=== PATIENT | female | born 1995 | race Caucasian/White ===

== ENCOUNTER 2020-10-19 13:27 | Emergency (ER) | payer OTHER, SELFPAY ==
[2020-10-19 13:38] VITALS: BP 120/74; PULSE 96; RESP 16; TEMP 37.5; O2SAT 99
--- NOTE | 2020-10-19 13:45 | ED.GENADULT ---
HPI - General Adult General Chief complaint: Unspecified Stated complaint: lightheaded, shaky and headaches Time Seen by Provider: 10/19/20 13:45 Source: patient and RN notes reviewed History of Present Illness HPI narrative: Patient is a 25-year-old female to urgent care with complaints of intermittent headaches, lightheadedness and dizziness. Patient states that it has been going on for approximately 2 weeks or more and she does have a PCP visit in 1 month but they were unable to see her any sooner. Patient states that the symptoms seem to improve after she eats a meal. Patient has not taken anything [id number] for her symptoms and denies of any upper respiratory symptoms. Patient states there is a history of diabetes in her family and she was concerned about being diabetic. Patient denies of any nausea, vomiting or abdominal pain associated with her symptoms. Denies of any loss of consciousness. Patient is currently denying of any lightheadedness or dizziness. Patient states that she is also taken 6 test and they have all been negative. Patient's last menstrual cycle was approximately 2 weeks ago. No current complaints. No other acute complaints. No acute distress noted. Patient aware of the plan of care. Some parts of this dictation were generated by voice recognition software and may contain typographical and/or grammatical inaccuracies. Related Data Home Medications Medication Instructions Recorded Confirmed norethindrone-e.estradiol-iron tablet 10/19/20 [ (28)] sertraline mg 10/19/20 Allergies Allergy/AdvReac Type Severity Reaction Status Date / Time No Known Allergies Allergy Verified 10/19/20 13:34 Review of Systems Review of Systems: Narrative: CONSTITUTIONAL: Denies fever, chills, or sweats. EYES: Denies visual changes, redness, or discharge. ENT: Denies rhinorrhea, congestion, sore throat, or otalgia. CARDIOVASCULAR: Denies chest pain, palpitations, or edema. RESPIRATORY: Denies cough or dyspnea. GASTROINTESTINAL: Denies abdominal pain, nausea, vomiting, or diarrhea. GENITOURINARY: Denies dysuria or hematuria. SKIN: Denies rash or itching. MUSCULOSKELETAL: Denies back pain, joint pain, or myalgia. NEUROLOGIC: Denies headache, numbness, or weakness. All other systems reviewed are negative, except as documented in HPI. PMFSH Social History Social History Smoking status: Never smoker Second hand tobacco smoke exposure: No Alcohol intake: current Comments At the time of my signature, I reviewed and agree with the nursing past medical, surgical, social, and family history. There is no relevant family history pertinent to the patient complaint. Exam Narrative: Exam Narrative: GENERAL: This is a well-nourished, well-developed patient, in no apparent distress. HEAD: normocephalic, atraumatic. EYES: PERRL. Sclera clear/white. Vision is grossly intact. EARS: External ears normal, auditory canals clear and without drainage, TMs normal without perforation. Hearing grossly intact. NOSE: External nose normal with no obvious nasal discharge, nares without redness, no rhinorrhea. THROAT: Mucous membranes moist, posterior pharynx clear. NECK: Neck supple, non-tender without lymphadenopathy CARDIOVASCULAR: Regular rate and rhythm without murmurs, gallops, or rubs. RESPIRATORY: Clear to auscultation. Breath sounds equal bilaterally. No wheezes, rales, or rhonchi. GASTROINTESTINAL: Abdomen soft, non-tender, nondistended. SKIN: warm, intact with no suspicious lesions or rash, good texture and turgor. NEURO: awake, alert, and oriented to person, place and time. There were no obvious focal neurologic abnormalities. EXTREMITIES: No clubbing, cyanosis, or edema. Course Vital Signs Vital signs: Vital Signs Temperature 99.5 F 10/19/20 13:38 Pulse Rate 96 10/19/20 13:38 Respiratory Rate 16 10/19/20 13:38 Blood Pressure 120/74 10/19/20 13:38 Pulse Oximetry 99
[2020-10-19 13:58] LABS: Glucose Point of Care 108 (65-105)
== END 2020-10-19 14:03 | disposition home or self-care (01) ==
PROVIDERS: Emergency Provider Nurse Practitioner Family
DX: R42 Dizziness and giddiness (principal); Z00.00 Encounter for general adult medical examination without abnormal findings
CPT/HCPCS: 82948; 99202; G0463

== ENCOUNTER 2021-04-13 17:48 | Emergency (ER) | payer OTHER, SELFPAY ==
[2021-04-13 17:59] VITALS: BP 107/77; PULSE 86; RESP 16; TEMP 36.8; O2SAT 100
--- NOTE | 2021-04-13 18:30 | ED.URI ---
HPI - URI/Sore Throat General Chief Complaint: Upper Respiratory Infection Stated Complaint: congestion and cough Time Seen by Provider: 04/13/21 18:30 Source: patient, RN notes reviewed and old records reviewed Mode of arrival: ambulatory Limitations: no limitations History of Present Illness HPI Narrative: 25-year-old female who presents to [facility] with complaints of cough for over a month. Patient reports that she was seen at other urgent care about a month ago and was told she had sinus infection with those symptoms resolving but continues to have persistent cough. Patient denies any fevers, chills or sweats, denies any sore throat,ear pain, sinus pressure or drainage. Patient has been taking Mucinex and using cough drops with no resolution. Patient has had COVID vaccinations. MD elicited complaint: cough Related Data Home Medications Medication Instructions Recorded Confirmed norethindrone-e.estradiol-iron 1 tablet PO DAILY 10/19/20 04/13/21 [ ()] sertraline 50 mg PO DAILY 10/19/20 04/13/21 Allergies Allergy/AdvReac Type Severity Reaction Status Date / Time No Known Allergies Allergy Verified 10/19/20 13:34 Review of Systems Review of Systems: CONSTITUTIONAL: Denies fever, chills, or sweats. EYES: Denies visual changes, redness, or discharge. ENT: Denies rhinorrhea, congestion, sore throat, or otalgia. CARDIOVASCULAR: Denies chest pain, palpitations, or edema. RESPIRATORY: Positive for cough denies dyspnea. GASTROINTESTINAL: Denies abdominal pain, nausea, vomiting, or diarrhea. GENITOURINARY: Denies dysuria or hematuria. SKIN: Denies rash or itching. MUSCULOSKELETAL: Denies back pain, joint pain, or myalgia. NEUROLOGIC: Denies headache, numbness, or weakness. PSYCHIATRIC:Positive history of anxiety or depression. All systems reviewed & are unremarkable except as noted in HPI and below PMFSH Past Medical History Medical History (Updated 04/16/21 @ 08:31 by Isabelle Reza NP) Anxiety and depression Surgical History Surgical History (Updated 04/16/21 @ 08:30 by Isabelle Reza NP) Hx of varicose vein ligation [place] teeth extracted Family History Family History (Updated 04/16/21 @ 08:31 by Isabelle Reza NP) Other No significant family history Social History Social History (Updated 04/17/21 @ 10:59 by Isabelle Reza NP) Smoking status: Never smoker Second hand tobacco smoke exposure: No Alcohol intake: current Substance use: never Living arrangements: with family Gender identity (if verbalized by the patient): Female Comments At time of signature, agree with nursing past medical, surgical, social and family history. There is no relevant family history pertinent to the presenting complaint Exam Narrative: GENERAL: Well-appearing, well-nourished, and in no acute distress. HEAD: Normocephalic, atraumatic. EYES: PERRLA and EOMI. ENT: Nares clear, no rhinorrhea or epistaxis. Mucous membranes moist.TM's normal with good light reflex, throat pink with no lesions or exudates, no tonsil enlargement. NECK: Supple. No lymphadenopathy CHEST: Clear to auscultation. No respiratory distress.SAO2 100% on room air, dry cough noted, no tachypnea or any dyspnea HEART: Regular rate and rhythm. No murmur heard. Normal peripheral pulses. ABDOMEN: Soft, nontender, nondistended, normal active bowel sounds. EXTREMITIES: Normal range of motion. No edema. SKIN: Warm, dry, no rash. NEURO: No focal deficits. Alert and oriented x3. Course Vital Signs Vital signs: Vital Signs Temperature 36.8 C 04/13/21 17:59 Pulse Rate 86 04/13/21 17:59 Respiratory Rate 16 04/13/21 17:59 Blood Pressure 107/77 04/13/21 17:59 Pulse Oximetry 100 04/13/21 17:59 Temperature 36.8 C 04/13/21 17:59 Pulse Rate 86 04/13/21 17:59 Respiratory Rate 16 04/13/21 17:59 Blood Pressure 107/77 04/13/21 17:59 Pulse Oximetry 100 04/13/21 17:59 MDM - URI/
== END 2021-04-13 18:50 | disposition home or self-care (01) ==
PROVIDERS: Emergency Provider Registered Nurse
DX: J06.9 Acute upper respiratory infection, unspecified (principal); F41.9 Anxiety disorder, unspecified; F32.9 Major depressive disorder, single episode, unspecified
CPT/HCPCS: 99213; G0463

== ENCOUNTER → 2021-12-31 10:10 | Outpatient (CLI) | payer OTHER, SELFPAY ==
--- NOTE | ~2021-12-31 | XR_ITS ---
XR lumbar spine 2-3V DATE: 12/31/2021 10:33 INDICATION: Back pain TECHNIQUE: AP, lateral, coned lateral lumbosacral views COMPARISON: None FINDINGS: An IUD overlies the central pelvis. There is mild levoscoliosis of the lower thoracic and lumbar spine. Included lower thoracic and lumbar pedicles are intact. No fracture or bone destruction or spondyloli sthesis. Lumbar and lumbosacral interspaces are well preserved. The sacral iliac joints are normal. IMPRESSION: Mild thoracolumbar levoscoliosis IUD Reviewed, dictated and finalized at location A.
== END ==
LOC: EXPGRAD 10:12
PROVIDERS: PCP Family Medicine; Visit Provider Family Medicine
DX: M54.9 Dorsalgia, unspecified (principal); M41.86 Other forms of scoliosis, lumbar region; Z97.5 Presence of (intrauterine) contraceptive device
CPT/HCPCS: 72100

== ENCOUNTER 2022-11-11 13:20 | Emergency (ER) | payer OTHER, SELFPAY ==
--- NOTE | 2022-11-11 13:23 | ED.EAR ---
HPI - Ear Problem General Chief complaint: Ear Stated complaint: ear infection Time Seen by Provider: 11/11/22 13:35 Source: patient and RN notes reviewed Mode of arrival: ambulatory Limitations: no limitations History of Present Illness HPI Narrative: 27-year-old female presents with concern for right ear pain. She reports she had nasal congestion and rhinorrhea a couple of weeks ago that have resolved. But she reports the ear pain remains. She reports it feels like there is something in the ear. She had been taking cold medicines when she had nasal congestion but she is no longer taking those. She denies fever, aches, chills, sweats. MD Complaint: ear pain Related Data Home Medications Medication Instructions Recorded Confirmed clonazepam 0.5 mg tablet 0.5 mg PO BID PRN Anxiety 12/31/21 11/11/22 sertraline 150 mg capsule 150 mg PO DAILY 12/31/21 11/11/22 Allergies Allergy/AdvReac Type Severity Reaction Status Date / Time No Known Allergies Allergy Verified 11/11/22 13:31 Review of Systems Review of Systems: CONSTITUTIONAL: Denies malaise, chills, sweats, or fever. EYES: Denies visual changes, redness, or discharge. ENT: Denies rhinorrhea, congestion, sinus pain, and sore throat. Reports right ear pain CARDIOVASCULAR: Denies chest pain, palpitations, or edema. RESPIRATORY: Denies cough. Denies dyspnea. GASTROINTESTINAL: Denies abdominal pain, nausea, vomiting, diarrhea SKIN: Denies rash or itching. MUSCULOSKELETAL: Denies myalgia. NEUROLOGIC: Denies headache. All systems reviewed & are unremarkable except as noted in HPI and below PMFSH Past Medical History Medical History Anxiety and depression Surgical History Surgical History Hx of varicose vein ligation [place] teeth extracted Family History Family History Mother Cancer Hypertension Depression Thyroid disorder Other Cancer Grandparent Cancer Diabetes mellitus Other Diabetes mellitus Social History Social History Smoking status: Never smoker Second hand tobacco smoke exposure: No Alcohol intake: current Alcohol use details: wine Substance use: current Living arrangements: with family Occupation/Education: occupation 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 There is no relevant family history pertinent to the presenting complaint Exam Narrative: GENERAL: Well-appearing, well-nourished, and in no acute distress. HEAD: Normocephalic EYES: PERRLA, conjunctivae clear ENT: Nares clear, turbinates edematous, clear discharge. Mucous membranes moist. TM pearly treviño with dull light reflex bilaterally, cloudy on the right without erythema or bulging; no tragal tenderness. Oropharynx not erythematous without lesions. Tonsils not enlarged and without exudate, no drooling, no hoarseness, no trismus, uvula midline. NECK: Supple. No lymphadenopathy CHEST: Clear to auscultation, breath sounds equal. No wheezing, rhonchi, rales, or stridor. No respiratory distress, speaks in full sentences. HEART: Regular rate and rhythm. No murmur heard. SKIN: Warm, dry, no rash. NEURO: Alert and oriented x3. PSYCH: Normal mood and affect Course Course Emergency Course: Patient is aware of diagnosis, understands and agrees to treatment plan. Anticipatory guidance given. Patient agrees to follow-up as directed and is aware of reasons to seek care at the emergency department. Portions of this record may have been created with voice recognition software Level of Care: Expre
[2022-11-11 13:29] VITALS: BP 114/84; PULSE 92; RESP 16; TEMP 36.8; O2SAT 100
== END 2022-11-11 13:54 | disposition home or self-care (01) ==
PROVIDERS: Emergency Provider Nurse Practitioner
DX: H69.91 Unspecified Eustachian tube disorder, right ear (principal); F41.9 Anxiety disorder, unspecified; F32.A Depression, unspecified
CPT/HCPCS: 99213; G0463

== ENCOUNTER 2024-08-30 15:24 | Emergency (ER) | payer OTHER, SELFPAY ==
--- OUTSIDE RECORDS SUMMARY | 2024-08-30 15:26 | XMS_ITS | Referral Summary ---
Author Organization [facility] Address [address] [place] [address] Care Team Providers Care Lasting Floorworker Name Role Phone Berto Ayala MD Primary Care Provider + [phone] Source Comments [facility],non-owned Affiliates and Associated Physician Practices is amultiple site organization consisting of ambulatory clinics and hospital sitesin [place], [place], [place] and [place]. This disclosure is being madepursuant to the Care Everywhere program and may not contain all information available regarding this patient. Last updated 18.[facility] [employer] Allergies No known active allergies Medications * Be aware that medications may not be up to date on this document. Alwaysverify current medications with the patient. Medication Sig Dispensed Refills Start Date End Date Status sertraline (ZOLOFT) 100 MG tabletIndications:G eneralized Anxiety Disorder,Panic Disorder Take 1.5 (one and one-half) tablets by mouth once daily Reasons: Generalized Anxiety Disorder, Panic Disorder 45 tablet 1 10/28/2021 Active clonazePAM (KLONOPIN) 0.5 MG tabletIndications:A nxiety Take 1 (one) tablet by mouth 2 times daily as needed for Anxiety Reasons: Feeling Anxious 30 tablet 10/28/2021 Active Active Problems No known active problems Social History Tobacco Use Types Packs/Day Years Used Date Smoking Tobacco: Never Smokeless Tobacco: Never Alcohol Use Standard Drinks/Week Comments Yes 0 (1 standard drink = 0.6 oz pur e alcohol) occasionally Sex and Gender Information Value Date Recorded Sex Assigned at Not on file Gender Identity Not on file Sexual Orientation Not on file Last Filed Vital Signs Vital Sign Reading Time Taken Comments Blood Pressure 110/87 10/28/2021 9:51 AM CDT Pulse 94 10/28/2021 9:51 AM CDT Temperature 36.6 C (97.9 F) 10/28/2021 9:51 AM CDT Respiratory Rate 16 10/28/2021 9:51 AM CDT Oxygen Saturation 97% 10/28/2021 9:51 AM CDT Inhaled Oxygen Concentration - - Weight 67.9 kg (149 lb 12.8 oz) 10/28/2021 9:51 AM CDT Height 172.7 cm (5' 8 ) 10/28/2021 9:51 AM CDT Body Mass Index 22.78 10/28/2021 9:51 AM CDT Plan of Treatment Not on file Care Teams Lasting Floorworker Relationship Specialty Start Date End Date Berto Ayala MD [address] [place] [id number] PCP - General Internal Medicine 03/10/16
--- OUTSIDE RECORDS SUMMARY | 2024-08-30 15:26 | XMS_ITS | Clinical Summary ---
Author Organization [facility] Address [address] [place] [address] Care Team Providers Care Fresco Artist Name Role Phone Berto Ayala MD Primary Care Provider + [phone] Source Comments [facility],non-owned Affiliates and Associated Physician Practices is amultiple site organization consisting of ambulatory clinics and hospital sitesin [place], [place], [place] and [place]. This disclosure is being madepursuant to the Care Everywhere program and may not contain all information available regarding this patient. Last updated 18.[facility] Allergies No known active allergies Medications * [...] Active Active Problems No known active problems Family History Medical History Relation Name Comments Cancer - Other Mother Hypertension Mother Relation Name Status Comments Mother Social History Tobacco Use Types Packs/Day Years [...] 10/28/2021 9:51 AM CDT Plan of Treatment Health Maintenance Due Date Last Done Comments PAP SMEAR 1993 HIV SCREENING 2008 HEPATITIS C SCREENING 05/01/2011 DTAP/TDAP/TD VACCINES (1 - Tdap) 2012 HEPATITIS B VACCINE (1 of 3 - 19+ 3-dose series) 2012 COVID-19 VACCINE (3 - 2023-2 5 season) 2024 08/20/2020, 07/23/2020 INFLUENZA VACCINE (#1) 2024 05/22/2019 DEPRESSION SCREENING 07/17/2024 ZOSTER VACCINE (1 of 2) 2043 HIB VACCINE Aged Out No longer eligi ble based on patient's age to complete this topic HPV VACCINE Aged Out No longer eligi ble based on patient's age to complete this topic MENINGOCOCCAL (Group B) VACCINE Aged Out No longer eligible b ased on patient's age to complete this topic MENINGOCOCCAL VACCINE Aged Out No zaire maury eligible based on patient's age to complete this topic PNEUMOCOCCAL VACCINE Aged Out No long er eligible based on patient's age to complete this topic Care Teams Fresco Artist Relationship Specialty Start Date End Date Berto Ayala MD [address] [place] [phone] PCP - General Internal Medicine 03/10/16
--- OUTSIDE RECORDS SUMMARY | 2024-08-30 15:26 | XMS_ITS | Patient Health Summary ---
Author Organization [facility] Address [address] [place] [address] Care Team Providers Care Insurance Business Analyst Name Role Phone Berto Ayala MD Primary Care Provider + [phone] Note from [facility],non-owned Affiliates and Associated Physician Practices is amultiple site organization consisting of ambulatory clinics and hospital sitesin [place], [place], [place] and [place]. This disclosure is being madepursuant to the Care Everywhere program and may not contain all information available regarding this patient. Last updated 18.[facility] Allergies No known active allergies Medications * Be aware that medications may not be up to date on this document. Alwaysverify current medications with the patient. * sertraline (ZOLOFT) 100 MG tablet(Started 10/28/2021) Take 1.5 (one and one-half) tablets by mouth once daily Reasons: Generalized Anxiety Disorder, Panic Disorder 1 refill by 10/28/2022 * clonazePAM (KLONOPIN) 0.5 MG tablet(Started 10/28/2021) Take 1 (one) tablet by mouth 2 times daily as needed for Anxiety Reasons: Feeling Anxious Active Problems No known active problems Social [...] Mass Index 22.78 10/28/2021 9:51 AM CDT Procedures * CULTURE URINE(Performed 02/06/2020) Performed for Acute cystitis without hematuria * URINALYSIS AUTO - POINT OF CARE (AMB) STL(Performed 02/06/2020) Performed for Acute cystitis without hematuria Results * (ABNORMAL) CULTURE URINE (02/06/2020 4:30 PM CDT) Pathologist [facility] Urine Culture Routine Final report(A) [facility] ACCOUNT BILL Result 1 Escherichia coli(A) [facility] ACCOUNT BILL Comment: Greater than 100,000 colony forming units per mL Cefazolin <=4 ug/mL Cefazolin with an MAURICIO <=16 predicts susceptibility to the oral agents cefaclor, cefdinir, cefpodoxime, cefprozil, cefuroxime, cephalexin, and loracarbef when used for therapy of uncomplicated urinary tract infections due to E. coli, Klebsiella pneumoniae, and Proteus mirabilis. Antimicrobial Susceptibility [facility] ACCOUNT BILL Comment: S = Susceptible; I = Intermediate; R = Resistant P = Positive; N = Negative MICS are expressed in micrograms per mL Antibiotic RSLT#1 RSLT#2 RSLT#3 RSLT#4 Amoxicillin/Clavulanic Acid S Ampicillin S Cefepime S Ceftriaxone S Cefuroxime S Ciprofloxacin S Ertapenem S Gentamicin S Imipenem S Levofloxacin S Meropenem S Nitrofurantoin S Piperacillin/Tazobactam S Tetracycline S Tobramycin S Trimethoprim/Sulfa S Urine URINE SPECIMEN OBTAINED BY CLEAN CATCH PROCEDURE / Unknown 02/06/2020 4:30 PM CDT 02/06/2020 Narrative Resulting Agency Comment Lab Testing performed at: [facility] [address] [id number] Kain Moreira APRN-[employer] - MICRO BIOLOGY ORDERABLES [facility] [place] [address] * URINALYSIS AUTO - POINT OF CARE (AMB) [facility]L (02/06/2020 4:29 PM CDT) Clarity UA POCT clear Color UA POCT yellow Leukocyte UA 125 Negative Nitrite UA POCT neg Negative Urobilinogen UA 0.2 0.1 - 1.0 Protein UA POCT 30+ Negative pH UA 5.0 5.0 - 8.0 pH units Blood UA ++ Negative Specific [place] UA POCT 1.015 1.002 - 1.030 Ketone UA neg Negative Bilirubin UA POCT neg Negative Glucose UA neg Negative Expiration Date [id number] Lot # [id number] QC Verified Yes Yes Urine URINE / Unknown 02/06/2020 4 :29 PM CDT Kain Moreira APRN-[employer] - POINT OF CARE ORDERABLES Care Teams Insurance Business Analyst Relationship Specialty Start Date End Date Berto Ayala MD [address] [place] [phone] PCP - General Internal Medicine 03/10/16
--- OUTSIDE RECORDS SUMMARY | 2024-08-30 15:27 | XMS_ITS | Referral Summary ---
Author Organization [facility] [address] [facility] Address [address] [place] [address] Care Team Providers Care Retina Subspecialist Name Role Phone Berto Ayala MD Unavailable [phone] Shad Hay MD Unavailable [phone] Jean Garcia DO Primary Care Provider [phone] Encounters Date Type Department Care Team Description 07/23/2024 Telephone [facility] Gastroenterology at [address] [place] [address] Maryann Azul LPN 07/23/2024 2:45 PM [facility] [employer] [facility] Lab [address] Lower abdominal pain; Chronic constipation; Irritable bowel syndrome with constipation 07/23/2024 2:00 PM [employer] Office Visit [facility] Gastro[facility]ology at [address] [place] [id number] Dante Tan DO Chronic constipation (Primary Dx); Lower abdominal pain; Family history of colon cancer; Family history of hyperplastic colon polyps; Irritable bowel syndrome with constipation; Chronic idiopathic constipation; Epigastric abdominal pain; Gastroesophageal reflux disease, unspecified whether esophagitis present; Other chest pain; Pharyngoesophageal dysphagia 06/03/[address] [place] [address] Battuello, Leila T., RN Pain/Bloating from Last 3 Months Allergies No known active allergies Medications levonorgestreL (LILETTA) 20.1 mcg/24 hrs (6 yrs) 52 mg IUDIndications: Abnormal Uterine Bleeding once Buy and bill device. 2 Active sertraline (ZOLOFT) 50 mg tablet Take 1 tablet (50 mg total) by mouth daily 30 tablet 11 4 03/22/20 25 Active Additional Information Patient not taking.Reported on 07/23/2024 Active Problems Problem Noted Date Diagnosed Date Abdominal pain 07/23/2024 Gastroesophageal reflux disease with esophagitis 07/23/2024 Family history of colon cancer in mother 025 Constipation 07/23/2024 Family history of colon cancer 05/25/2024 Overview (05/25/2024): Brother stage 4 age 32 and mother age 55. Family history of breast cancer 05/25/2024 Overview (05/25/2024): Mother around age 39 Hypovitaminosis D 06/11/2017 Thyromegaly 05/20/2017 Overview (05/20/2017): Likely secondary to ; check TSH and free T4. Resolved Problems Problem Noted Date Diagnosed Date Resolved Date Low vitamin D level 05/10/2019 11/08/19 20 Immunizations Name Administration Dates Next Due DTP 12/03/1994 DTP / HiB 1993,1993,1993 HPV9 06/17/2022,09/27/2021 Hep B, Adolescent or Pediatric 1993,1992,1993 HiB 08/05/1994 Influenza, Quadrivalent, Spl it, Preservative Free, Intramuscular 05/22/2019 MMR 11/08/2019(Deferred: No longer needed),12/08/2017(Deferred: Other - Rubella Immune; med not needed),08/05/1994 OPV 12/03/1994,1993,1993 Tdap 09/27/2019,12/06/2017 Social History Tobacco Use Types Packs/Day Years Used Date Smoking Tobacco: Never Smokeless Tobacco: Never Tobacco Cessation:Counseling Given: Not Answered Alcohol Use Standard Drinks/Week Comments No 0 (1 standard drink = 0.6 oz pur e alcohol) AUDIT-C Answer Date Recorded Q1: How often do you have a drink containing alc ohol? Never 07/23/2024 Average Number of Drinks Not on file 025 Frequency of Binge Drinking Not on file 01/2025 PHQ-2 Answer Date Recorded PHQ-2 Total Score (If total score is 3 or more points, staff should administer the PHQ-9) 0 05/22/2023 Comments No Sex and Gender Information Value Date Recorded Sex Assigned at Not on file Legal Sex Female 10:31 AM CDT Gender Identity Not on file Sexual Orientation Not on file Last Filed Vital Signs Vital Sign Reading Time Taken Comments Blood Pressure 99/70 07/23/2024 1:51 PM [employer] [employer] Pulse 89 07/23/2024 1:51 PM [employer] Temperature 36.2 C (97.2 F) 03/16/2021 11:04 AM CDT Respiratory Rate 16 03/16/2021 11:04 AM CDT Oxygen Saturation 98% 07/23/2024 1:51 PM [employer] Inhaled Oxygen Concentration - - Weight 71 kg (156 lb 8 oz) 07/23/2024 1:51 PM CS T Height 172.7 cm (5' 8 ) 07/23/2024 1:51 PM [employer] Body Mass Index 23.8 07/23/2024 1:51 PM [employer] Plan of Treatment Upcoming Encounters Date Type Department Care Team (Latest Contact Info) Description 10/24/2024 1:00 PM CDT Hospital Encounter [address] [address] Dante Tan DO [address] [facility] [address] [place] [address] 10/24/2024 1:00 PM CDT - 10/24/2024 1:40 PM CDT Surgery [address] [address] Dante Tan DO [address] [facility] [address] [place] [address] ESOPHAGOGASTRODUODENOSCOPY Scheduled Procedures Name Priority Associated Diagnoses Date/Ti me ESOPHAGOGASTRODUODENOSCOPY Abdominal pain Gastroesophageal reflux disease with esophagitis, unspecified whether hemorrhage Family history of colon cancer in mother Constipation, unspecified constipation type 10/24/2024 1:00 PM CDT COLONOSCOPY Abdominal pain Gastroesophageal reflux disease with esophagitis, unspecified whether hemorrhage Family history of colon cancer in mother Constipation, unspecified constipation type 10/24/2024 1:00 PM CDT Procedures Procedure Name Priority Date/Time Associated Diagnosis Comments HEPATITIS PANEL, ACUTE Routine 07/23/2024 2:49 PM [employer] [employer] Lower abdominal pain Chronic constipation Irritable bowel syndrome with constipation HEPATITIS A ANTIBODY, TOTAL Routine 07/23/2024 2:49 PM [employer] Lower abdominal pain Chronic constipation Irritable bowel syndrome with constipation HEPATITIS B SURFACE ANTIBODY (IMMUNE STATUS) Routine 07/23/2024 2:49 PM [employer] Lower abdominal pain Chronic constipation Irritable bowel syndrome with constipation HIV 1/2 ANTIBODY PLUS P24 ANTIGEN Routine 07/23/2024 2:49 PM [employer] Lower abdominal pain Chronic constipation Irritable bowel syndrome with constipation PAP AND HPV, REFLEX TO HPV GENOTYPES Routine 04/22/2024 2:37 PM CDT Well woman exam from Last 3 Months or Most Recently Relevant to Health Maintenance Results * HIV 1/2 Antibody plus p24 Antigen Blood (07/23/2024 2:49 PM [employer] [employer]) HIV 1/2 ab + p24 ag Nonreactive Nonreactive Comment: Nonreactive for HIV-1 antigen and HIV-1/HIV-2 antibodies. No laboratory evidence of HIV infection. If acute HIV infection is suspected, consider testing for HIV-1 RNA. Testing performed by: [facility], [address] [place] [address], [place]., [id number] Blood 07/23/2024 2:49 PM [employer] [employer] 07/23/2024 8:00 PM [employer] us Dante Tan DO LAB MICROBIOLOGY - GENERAL ORD ERABLES Final Result LAURA [facility]AL[facility] (ZEV) 1 [facility] Department [place] [address] * Hepatitis A antibody, total Blood (07/23/2024 2:49 PM [employer]) Hep A total Nonreactive Nonreactive Comment:Testing performed by : [facility], [address] [place]., [address] Blood 07/23/2024 2:49 PM [employer] 07/23/2024 6:16 PM [employer] us Dante Tan DO LAB MICROBIOLOGY - GENERAL ORD ERABLES Final Result Performing Organization Address [facility]/ZIP Co de Phone Number LAURA ZAVALA (ZEV) 1 [facility] [place] [address] * Hepatitis panel, acute Blood (07/23/2024 2:49 PM [employer]) Hep A IgM Nonreactive Nonreactive Comment: Interpretive Data: If Hep A IgM Ab is reported as Equivocal, a new sample should be drawn in two weeks for testing. Current interpretive data was last revised on 19. Testing performed by: [address] [address] Hep B core IgM Nonreactive Nonreactive Aicha ZAVALA (ZEV) Comment: Interpretive Data If HepB Core IgM Ab is reported as Equivocal, a new sample should be drawn in two weeks for testing. Current interpretive data was last revised on 19. Testing performed by: [facility], [address] [place] [address]., [id number] Hep C Ab Nonreactive Nonreactive [facility] (ZEV) Comment: Interpretive Data Nonreactive: Antibodies to HCV not detected. Does NOT exclude the possibility of recent exposure to HCV. Equivocal: Equivocal for HCV antibodies. Supplemental molecular testing will be automatically performed to determine infection status in accordance with current CDC screening recommendations. Reactive: Positive for HCV antibodies. This may represent current or past HCV infection. Supplemental molecular testing will be automatically performed to determine current infection status in accordance with current CDC screening recommendations. Interpretive data was last revised on 2019. Testing performed by: [facility], [address] [place] [address]., [id number] HepBsAg Nonreactive Nonreactive LAURA ZAVALA (ZEV) Comment:Testing performed by : [facility], [address] [place] [address]., [id number] Blood 07/23/2024 2:49 PM [employer] 07/23/2024 8:00 PM [employer] Dante LeyvaAnthony Tan LAB MICROBIOLOGY - GENERAL ORD ERABLES Final Result LAURA ZAVALA (BUFFALO) 1 [facility] [place] [address] * Hepatitis B surface antibody (immune status) Blood (07/23/2024 2:49 PM [employer]) HBsAb (immune status) Nonreactive Comment: Interpretive Data Nonreactive: This result is consistent with a lack of immunity to Hepatitis B Virus when used in the setting of routine screening. Equivocal: The immune status of the individual should be further assessed, if appropriate, after consideration of clinical status, risk factors, and additional diagnostic information. Reactive: This result is consistent with immunity to Hepatitis B Virus when used in the setting of routine screening. Current interpretive data was last revised on 19. Testing performed by: [facility], [address] [place] [address]., [id number] Blood 07/23/2024 2:49 PM [employer] 07/23/2024 8:00 PM [employer] Dante LeyvaAnthony Felipeloniaylin LAB MICROBIOLOGY - GENERAL ORD ERABLES Final Result LAURA ZAVALA (ZEV) 1 [facility] [place] [address] * Pap and HPV, reflex to HPV Genotypes (04/22/2024 2:37 PM CDT) Clinical indication Comment [facility] - 01 Comment:NEGATIVE FOR INTRAEP ITHELIAL LESION OR MALIGNANCY. Specimen adequacy: Comment [facility] - 01 Comment: Satisfactory for evaluation. Endocervical and/or squamous metaplastic cells (endocervical component) are present. Clinician provided ICD10 Comment [facility] - 01 Comment:Z01.419 Performed by Comment [facility] - 01 Comment:Braulio Darden totechnologist (ASCP) . . [facility] - 01 Note: Comment [facility] - 01 Comment: The Pap smear is a screening test designed to aid in the detection of premalignant and malignant conditions of the uterine cervix. It is not a diagnostic procedure and should not be used as the sole means of detecting cervical cancer. Both false-positive and false-negative reports do occur. Test methodology Comment [facility] - 01 Comment: This liquid based ThinPrep(R) pap test was screened with the use of an image guided system. HPV Aptima Negative Negative LAB [facility] 02 Comment: This nucleic acid amplification test detects fourteen high-risk HPV types (16,18,31,33,35,39,45,51,52,56,58,59,66,68) without differentiation. HPV Genotype Reflex Comment [facility] - 01 Comment:Criteria not met, HP V Genotype not performed. Thin prep-Endocervical 04/22/2024 2:37 PM CDT 04/22/2024 Narrative [facility] - 04/26/2024 4:13 PM CDT Performed at: 01 - [address] [id number] Tubing Machine Tender: Jojo Pete MD, Phone: [phone] Performed at: 02 - [address] [id number] Tubing Machine Tender: Jojo Pete MD, Phone: [phone] Specimen Comment: [id number] Specimen Comment: No. of containers..01 ThinPrep Vial us Shad Hay MD LAB CYTOLOGY ORDERABLES Fi nal Result [facility] - 01 LAB [facility] 02 from Last 3 Months or Most Recently Relevant to Health Maintenance Insurance CHOICE PLUS CHOICE PLUS Advance Directives For more information, please contact: [phone] * Full Code (Latest Code Status on File) Date Activated Date Inactivated Comments 11/08/2019 6:21 AM 11/09/2019 10:15 PM Full CPR in case of cardiopulmonary arrest * Full Code Date Activated Date Inactivated Comments 12/05/2017 8:21 PM 12/08/2017 5:41 PM Full CPR in case of cardiopulmonary arrest Care Teams Retina Subspecialist Relationship Specialty Start Date End Date Jean Garcia DO [address] [place] [address] [place] [address] PCP - General Family Medicine 04/24/24 Berto Ayala MD [address] [place] [id number] Internal Medicine 10/19/20 Shad Hay MD [address] [facility] [address] [place] [id number] Rand Cementer Obstetrics and Gynecology 11/09/19
--- OUTSIDE RECORDS SUMMARY | 2024-08-30 15:27 | XMS_ITS | Clinical Summary ---
Author Organization [address] lt Address [address] [place] [address] Care Team Providers Care Seismic Plotter Name Role Phone Berto Ayala MD Unavailable [phone] Shad Hay MD Unavailable [phone] Jean Garcia DO Primary Care Provider [phone] Allergies No known active allergies Medications levonorgestreL [...] Low vitamin D level 05/10/2019 11/08/19 20 Encounters Date Type Department Care Team Description 07/23/2024 2:45 PM DIRECTOR OF EPIDEMIOLOGY Lab [address] Lower abdominal pain; Chronic constipation; Irritable bowel syndrome with constipation 07/23/2024 2:00 PM DIRECTOR OF EPIDEMIOLOGY Office Visit [facility] at [address] [place] [address] Dante Tan, Chronic constipation (Primary Dx); Lower abdominal pain; Family history of colon cancer; Family history of hyperplastic colon polyps; Irritable bowel syndrome with constipation; Chronic idiopathic constipation; Epigastric abdominal pain; Gastroesophageal reflux disease, unspecified whether esophagitis present; Other chest pain; Pharyngoesophageal dysphagia 07/23/2024 Telephone [facility] at [address] [place] [address] Maryann Azul LPN 06/03/2024 Telephone [facility] [address] [place] [address] Leila Tadeo, RN Pain/Bloating from Last 3 Months Immunizations Name Administration Dates Next Due DTP 12/03/1994 DTP / HiB 1993,1993,1993 HPV9 06/17/2022,09/27/2021 Hep B, Adolescent or Pediatric 1993,1992,1993 HiB 08/05/1994 Influenza, Quadrivalent, Spl it, Preservative Free, Intramuscular 05/22/2019 MMR 11/08/2019(Deferred: No longer needed),12/08/2017(Deferred: Other - Rubella Immune; med not needed),08/05/1994 OPV 12/03/1994,1993,1993 Tdap 09/27/2019,12/06/2017 Surgical History Surgery Date Site/Laterality Comments VARICOSE VEIN SURGERY 07/17/2015 - 07/16/2016 WISDOM TOOTH EXTRACTION 04/16/2016 - 05/16/2016 COLPOSCOPY Medical History Medical History Date Comments Anxiety and depression STI (sexually transmitted infection) Covid-19 Vitamin D deficiency Marijuana use Family History Medical History Relation Name Comments Colon cancer Brother Colon polyps Father Diabetes Maternal Grandfather Breast cancer Maternal Grandmother Breast cancer Mother Colon cancer Mother Hypertension Mother Kidney disease Mother Thyroid disease Mother Diabetes Mother's Sister Diabetes Other Maternal Great Aunt Colon cancer Paternal Grandmother Relation Name Status Comments Brother Father Maternal Grandfather Maternal Grandmother Mother Mother's Sister Other Maternal Great Aunt Paternal Grandmother Social History Tobacco Use Types Packs/Day Years [...] on file Sexual Orientation Not on file Obstetrics History Para Term AB IAB SAB Ectopic Multiple Livin g Live Births 2 2 2 0 0 0 0 0 0 2 2 Date Outcome GA Total Labor Labor/2nd/3rd Weight Sex Type Anes PTL Debbie A1 A5 Name Clin 2017 Term 40w 2d 6h 02m 2h 40m/3h 17m/0h 05m 3.755 kg (8 lb 4.5 oz) M Vag-S pont Epidur al N Livin g 6 8 DILLO N,BOY WILLFA Shad Zarate MD Complications:None Delivery Location:This [facility] ([facility] 2019 Term 39w 3d 3h 34m 2h 55m/0h 32m/0h 07m 4.19 kg (9 lb 3.8 oz) M Vag-S pont Epidur al N Livin g 9 9 DILLO N,BOY WILLFA Shad Zarate MD Complications:None Delivery Location:This [facility] ([facility]) Last Filed Vital Signs Vital Sign Reading Time Taken Comments Blood Pressure 99/70 07/23/2024 1:51 PM DIRECTOR OF EPIDEMIOLOGY Pulse 89 07/23/2024 1:51 PM DIRECTOR OF EPIDEMIOLOGY Temperature 36.2 C (97.2 F) 03/16/2021 11:04 AM CDT Respiratory Rate 16 03/16/2021 11:04 AM CDT Oxygen Saturation 98% 07/23/2024 1:51 PM DIRECTOR OF EPIDEMIOLOGY Inhaled Oxygen Concentration - - Weight 71 kg (156 lb 8 oz) 07/23/2024 1:51 PM CS T Height 172.7 cm (5' 8 ) 07/23/2024 1:51 PM DIRECTOR OF EPIDEMIOLOGY Body Mass Index 23.8 07/23/2024 1:51 PM DIRECTOR OF EPIDEMIOLOGY Plan of Treatment Upcoming Encounters Date Type Department Care Team (Latest Contact Info) Description 10/24/2024 1:00 PM CDT Hospital Encounter [address] [address] Dante Tan DO [address] [facility] [address] [place] [address] 10/24/2024 1:00 PM CDT - 10/24/2024 1:40 PM CDT Surgery [address] [address] Dante Tan DO [address] [facility] [address] [place] [address] ESOPHAGOGASTRODUODENOSCOPY Scheduled Procedures Name Priority Associated Diagnoses Date/Ti me ESOPHAGOGASTRODUODENOSCOPY Abdominal pain Gastroesophageal reflux disease with esophagitis, unspecified whether hemorrhage Family history of colon cancer in mother Constipation, unspecified constipation type 10/24/2024 1:00 PM CDT COLONOSCOPY Abdominal pain Gastroesophageal reflux disease with esophagitis, unspecified whether hemorrhage Family history of colon cancer in mother Constipation, unspecified constipation type 10/24/2024 1:00 PM CDT Health Maintenance Due Date Last Done Comments Varicella Vaccines (1 of 2 - 13+ 2-dose series) 2006 Depression Screening 07/12/2022 07/12/2021, 07/06/2020, 07/06/2020, Additional history exists HPV Vaccines (3 - 3-dose SCDM series) 09/09/2022 06/17/2022, 09/27/2021 Influenza Vaccine (#1) 2024 05/22/2019 Cervical Cancer Screening 04/22/20252023, 09/26/2023, 03/27/2023, Additional history exists Regular Well Visit/Exam 18-64 04/22/2025 04/22/2024, 03/27/2023, 07/12/2021, Additional history exists DTaP/Tdap/Td Vaccine (7 - Td or Tdap) 09/26/2029 09/27/2019, 12/06/2017, 12/03/1994, Additional history exists Hepatitis B Screening Completed 07/23/2024 , 1993, 1993, Additional history exists Hepatitis C Screening Completed 07/23/2024 , 05/01/2019, 06/03/2017 Pneumococcal vaccine <65 Aged Out No longer eligible based on patient's age to complete this topic Procedures Procedure Name Priority Date/Time Associated Diagnosis Comments HEPATITIS PANEL, ACUTE Routine 07/23/2024 2:49 PM DIRECTOR OF EPIDEMIOLOGY Lower abdominal pain Chronic constipation Irritable bowel syndrome with constipation HEPATITIS A ANTIBODY, TOTAL Routine 07/23/2024 2:49 PM DIRECTOR OF EPIDEMIOLOGY Lower abdominal pain Chronic constipation Irritable bowel syndrome with constipation HEPATITIS B SURFACE ANTIBODY (IMMUNE STATUS) Routine 07/23/2024 2:49 PM DIRECTOR OF EPIDEMIOLOGY Lower abdominal pain Chronic constipation Irritable bowel syndrome with constipation HIV 1/2 ANTIBODY PLUS P24 ANTIGEN Routine 07/23/2024 2:49 PM DIRECTOR OF EPIDEMIOLOGY Lower abdominal pain Chronic constipation Irritable bowel syndrome with constipation PAP AND HPV, REFLEX TO HPV GENOTYPES Routine 04/22/2024 2:37 PM CDT Well woman exam from Last 3 Months or Most Recently Relevant to Health Maintenance Results * HIV 1/2 Antibody plus p24 Antigen Blood (07/23/2024 2:49 PM DIRECTOR OF EPIDEMIOLOGY) Pathologist [facility] HIV 1/2 ab + p24 ag Nonreactive Nonreactive Comment: Nonreactive for HIV-1 antigen and HIV-1/HIV-2 antibodies. No laboratory evidence of HIV infection. If acute HIV infection is suspected, consider testing for HIV-1 RNA. Testing performed by: [facility], [address] [place] [address], [place]., [id number] Blood 07/23/2024 2:49 PM DIRECTOR OF EPIDEMIOLOGY 07/23/2024 8:00 PM DIRECTOR OF EPIDEMIOLOGY Dante Tan DO LAB MICROBIOLOGY - GENERAL ORD ERABLES Final Result LAURA ZAVALA (ZEV) 1 [facility] [place] [address] * Hepatitis A antibody, total Blood (07/23/2024 2:49 PM DIRECTOR OF EPIDEMIOLOGY) Pathologist [facility] Hep A total Nonreactive Nonreactive Comment:Testing performed by : [facility], [address] [place] [address]., [id number] Blood 07/23/2024 2:49 PM DIRECTOR OF EPIDEMIOLOGY 07/23/2024 6:16 PM DIRECTOR OF EPIDEMIOLOGY Dante Tan DO LAB MICROBIOLOGY - GENERAL ORD ERABLES Final Result LAURA ZAVALA (ZEV) 1 [facility] [place] [employer] [place] [address] * Hepatitis panel, acute Blood (07/23/2024 2:49 PM DIRECTOR OF EPIDEMIOLOGY) Pathologist [facility] Hep A IgM Nonreactive Nonreactive Comment: Interpretive Data: If Hep A IgM Ab is reported as Equivocal, a new sample should be drawn in two weeks for testing. Current interpretive data was last revised on 19. Testing performed by: [facility], [address] [place] [address], [place]., [id number] Hep B core IgM Nonreactive Nonreactive C NUHA ZAVALA (ZEV) Comment: Interpretive Data If HepB Core IgM Ab is reported as Equivocal, a new sample should be drawn in two weeks for testing. Current interpretive data was last revised on 19. Testing performed by: [address] [address] Hep C Ab Nonreactive Nonreactive LAURA ZAVALA (ZEV) Comment: Interpretive Data Nonreactive: Antibodies to [...] last revised on 2019. Testing performed by: [facility], [address] [place] [address]., [id number] HepBsAg Nonreactive Nonreactive LAURA ZAVALA (ZEV) Comment:Testing performed by : [address] [address] Blood 07/23/2024 2:49 PM DIRECTOR OF EPIDEMIOLOGY 07/23/2024 8:00 PM DIRECTOR OF EPIDEMIOLOGY Dante Tan DO LAB MICROBIOLOGY - GENERAL ORD ERABLES Final Result LAURA ZAVALA (ZEV) 1 [facility] [place] [address] * Hepatitis B surface antibody (immune status) Blood (07/23/2024 2:49 PM DIRECTOR OF EPIDEMIOLOGY) HBsAb (immune status) Nonreactive Comment: Interpretive Data [...] last revised on 19. Testing performed by: [address] [address] Blood 07/23/2024 2:49 PM DIRECTOR OF EPIDEMIOLOGY 07/23/2024 8:00 PM DIRECTOR OF EPIDEMIOLOGY Dante Tan DO LAB MICROBIOLOGY - GENERAL ORD ERABLES Final Result LAURA ZAVALA ([place]) 1 [facility] [place] [address] * Pap and HPV, reflex to HPV [...] - 04/26/2024 4:13 PM CDT Performed at: [address] [id number] Developer: Jojo Pete MD, Phone: [phone] Performed at: 02 - [facility] [address], [place] [id number] As400 Developer: Jojo Pete MD, Phone: [phone] Specimen Comment: [id number] Specimen Comment: No. of containers..01 ThinPrep Vial Shad Hay MD LAB CYTOLOGY ORDERABLES Fi nal Result [facility] - 01 LAB YAZMIN 02 from Last 3 Months or Most Recently Relevant to Health Maintenance Insurance [employer] [id number] [place] [address] CHOICE PLUS Advance Directives For more information, please contact: [phone] * Full Code (Latest Code Status on File) Date Activated Date Inactivated Comments 11/08/2019 6:21 AM 11/09/2019 10:15 PM Full CPR in case of cardiopulmonary arrest * Full Code Date Activated Date Inactivated Comments 12/05/2017 8:21 PM 12/08/2017 5:41 PM Full CPR in case of cardiopulmonary arrest Care Teams Seismic Plotter Relationship Specialty Start Date End Date Jean Garcia DO [address] [facility] [address] [place] [address] PCP - General Family Medicine 04/24/24 Berto Ayala MD [address] [place] [address] Internal Medicine 10/19/20 Shad Hay MD [address] [place] [address] [address] [place] [address] Machine Erector Obstetrics and Gynecology 11/09/19
[2024-08-30 15:32] VITALS: BP 109/72; PULSE 92; RESP 16; TEMP 36.7; O2SAT 100
--- NOTE | 2024-08-30 15:35 | ED_ITS ---
HPI - URI/Sore Throat General Chief Complaint: Upper Respiratory Infection Stated Complaint: head congestion/throat Time Seen by Provider: 08/30/24 15:35 History of Present Illness HPI Narrative: 29-year-old female presented for complaint of sinus pressure and congestion for almost 2 weeks. now reports right ear pain and fullness. Denies Shortness of breath, wheezing nausea, vomiting, diarrhea, fevers or chills. Taking Tylenol and ibuprofen for symptoms. Related Data Home Medications ?Medication ?Instructions ?Recorded ?Confirmed ?Last Taken ?Type iud 08/30/24 Unknown History Allergies Allergy/AdvReac Type Severity Reaction Status Date / Time No Known Allergies Allergy Verified 08/30/24 15:39 Review of Systems Review of Systems: per HPI [facility] Past Medical History Medical History Anxiety and depression Surgical History Surgical History Hx of varicose vein ligation [place] teeth extracted Family History Family History Mother Cancer Hypertension Depression Thyroid disorder Other Cancer Grandparent Cancer Diabetes mellitus Other Diabetes mellitus Social History Social History Smoking status: Never smoker Second hand tobacco smoke exposure: No Alcohol intake: current Alcohol use details: wine Substance use: current Lack of Transportation: No Lack of Food: Never True Current Housing: I Have Housing Concerned About Future Housing: No Difficulty Paying Gas/Electric Bills: YES Difficulty Paying for Meds: No Currently Unemployed: No Education: Associate Degree Difficulty w/ Childcare or Family Care: No Living arrangements: with family Occupation/Education: occupation 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 EYES: conjunctivae clear ENT: Mucous membranes moist. TM pearly treviño with normal light reflex bilaterally; no tragal tenderness. Oropharynx not erythematous without lesions. No drooling, no hoarseness, no trismus, uvula midline. No tripod positioning, hot potato voice, or soft palate swelling. NECK: Supple. No lymphadenopathy CHEST: Clear to auscultation, breath sounds equal. No respiratory distress, speaks in full sentences. HEART: Regular rate and rhythm. No murmur heard. SKIN: Warm, dry, no rash. NEURO: Alert and oriented x3. Course Course Emergency Course: Patient is aware of diagnosis, understands and agrees to treatment plan. Anticipatory guidance given. Patient agrees to follow-up as directed and is aware of reasons to seek care at the emergency department. Portions of this record may have been created with voice recognition software Level of Care: Express Care Visit MDM - URI/Sore Throat MDM Narrative Medical decision making narrative: discussed physical exam findings consistent with sinusitis.. Advise supportive treatments. Patient is appropriate for outpatient treatment and follow-up. Differential Diagnosis Differential diagnosis: Likely upper respiratory infection, viral infection and pharyngitis Discharge Plan Discharge Clinical Impression: Sinusitis Patient Disposition: Home, Self-Care Condition: Stable Instructions: Antibiotic Form, Rhinosinusitis (ED) Additional Instructions: take antibiotic as directed Recommendations: Flonase spray and Zyrtec (or Claritin/Yancy) over the counter Cough syrup may cause drowsiness; avoid driving or take it at night time. Tylenol 1000mg every 8 hours as needed for pain Symptomatic treatment includes: rest, fluids, and increase humidity of the air at home. Follow up with your primary care provider in 1 week. Go to the ER for worsening symptoms or concerns. Patient Language: Maltese Prescriptions: New amoxicillin-pot clavulanate 875-125 mg tablet 1 tablet PO Q12H 7 Days Qty: 14 0RF No Action iud Follow-up/Referrals: PHYSICIAN,MITER CUTTER [Primary Care Provider] - Time of Disposition: 15:44
== END 2024-08-30 15:53 | disposition home or self-care (01) ==
PROVIDERS: Emergency Provider Nurse Practitioner Family
DX: J01.90 Acute sinusitis, unspecified (principal)
CPT/HCPCS: 99213; G0463